=== PATIENT | female | born 1985 | race Asian ===

== ENCOUNTER → 2018-03-05 | Outpatient (CLI) | payer OTHER ==
--- NOTE | 2018-03-06 13:18 | MAMMOGRAPHY REPORT ---
UNILATERAL LEFT DIGITAL DIAGNOSTIC MAMMOGRAM TOMOSYNTHESIS WITH CAD AND TARGETED LEFT ULTRASOUND: 02/14 CLINICAL HISTORY: 32-year-old woman presents with a few month history of itchiness of the left nipple and several episodes of a tiny amount of milky nipple discharge. No palpable masses or skin changes . Patient reports she weaned her baby from breast-feeding approximately 1 year ago. TECHNIQUE: Left breast tomosynthesis in addition to standard 2D mammography was performed. Current s tyrone was also evaluated with a Computer Aided Detection (CAD) system. COMPARISON: No prior exams were available for comparison. BREAST COMPOSITION: The tissue of the left breast is heterogeneously dense, which may obscure small masses. FINDINGS: No obvious mass, asymmetry, architectural distortion or cluster of microcalcifications is seen in the left breast. No focal skin thickening or nipple inversion. Targeted ultrasound was performed along the left nipple and in the periareolar/retroareolar left [address]. Sonographically normal tissue is seen without a discrete solid or cystic mass. No intraductal m ass identified. No focal skin thickening appreciated. IMPRESSION: ACR BI-RADS CATEGORY 2: BENIGN, TARGETED ULTRASOUND ACR BI-RADS CATEGORY 2: BENIGN There is no mammographic or targeted sonographic evidence of malignancy in the left breast. No suspi cious mammographic or targeted sonographic abnormality to explain a few episodes of milky nipple disc harge, suggesting this may be physiologic. Continued monitoring is recommended and correlation with lab parameters may be useful. Also recommend clinical follow-up for the itchy left nipple and if it continues, surgical consultation for skin skin sampling may be needed. The patient has been verbally notified of the results. Approximately 10% of breast cancers are not detected with mammography. A negative mammographic report should not delay biopsy if a clinically suggestive mass is present. Hailey Tolliver M.D. ay/:03/05/2018 15:15:24 Compounder: Estela HERNANDEZ(Azam)([place]), [facility] letter sent: Normal 1/2 BI-RADS Code: ACR BI-RADS Category 2: Benign Ultrasound BI-RADS: ACR BI-RADS Category 2: Benign
== END | disposition home or self-care (01) ==
LOC: C.MAMM 13:45
PROVIDERS: ATTEND Physician Assistant Medical
DX: N64.4 Mastodynia (principal); N64.52 Nipple discharge